=== PATIENT | female | born 1970 | race Caucasian/White ===

== ENCOUNTER 2016-10-11 13:31 | Emergency (ER) | payer OTHER ==
[~2016-10-11] VITALS: Wt 80.5 kg
[~2016-10-11 13:31] MED LIST: AMLO-145; BENA20TA48; HYDR12.53; METF500T4
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
[2016-10-11] MEDS ORDERED: IBUP-1542 PO (16:36)
== END 2016-10-11 17:22 | disposition home or self-care (01) ==
LOC: FTE 13:31
DX: S09.93XA Unspecified injury of face, initial encounter (principal); I10 Essential (primary) hypertension; E11.9 Type 2 diabetes mellitus without complications; V49.50XA Passenger injured in collision with unspecified motor vehicles in traffic accident, initial encounter; Z79.84 Long term (current) use of oral hypoglycemic drugs
CPT/HCPCS: 70486; Z7502